=== PATIENT | female | born 1985 | race Caucasian/White ===

== ENCOUNTER 2021-07-27 14:01 | Emergency (ER) | payer SELFPAY ==
[~2021-07-27] VITALS: Ht 157.5 cm; Wt 50.8 kg
[2021-07-27] MEDS ORDERED: DOXYCYCLINE HY100 MG PO (15:01)
[2021-07-27] MEDS ORDERED: FLAGYL500 MG PO (15:33)
== END 2021-07-27 16:18 | disposition home or self-care (01) ==
LOC: ED 14:01
DX: N76.0 Acute vaginitis (principal); B96.89 Other specified bacterial agents as the cause of diseases classified elsewhere; Z88.0 Allergy status to penicillin; Z88.5 Allergy status to narcotic agent
CPT/HCPCS: 81001; 87210; 87491; 96372; 99283; J0696